=== PATIENT | male | born 1970 | race Caucasian/White ===

== ENCOUNTER 2016-08-28 07:04 | Day surgery (SDC) | payer MEDICARE ==
[~2016-08-28] VITALS: Ht 167.6 cm; Wt 89.0 kg
[2016-08-28] MEDS ORDERED: DEXAMETHASONE 4 MG/ML, 1ML ONE (08:35)
[2016-08-28] MEDS ORDERED: PROPOFOL 10 MG/ML, 20ML ONE (08:35)
[2016-08-28] MEDS ORDERED: CEFAZOLIN 1,000 MG ONE (08:35)
[2016-08-28] MEDS ORDERED: NEOSTIGMINE 1 MG/ML, 10ML ONE (08:35)
[2016-08-28] MEDS ORDERED: ROCURONIUM 10 MG/ML ONE (08:35)
[2016-08-28] MEDS ORDERED: ONDANSETRON 2MG/ML, 2ML ONE (08:35)
[2016-08-28] MEDS ORDERED: GLYCOPYRROLATE 0.2MG/1ML ONE (08:35)
[2016-08-28] MEDS ORDERED: NO HOME MEDS (09:23)
[2016-08-28] MEDS ORDERED: LACTATED RINGERS 1,000 ML IV SCH (09:23)
[2016-08-28 09:24] VITALS: BP 137/93
[2016-08-28] MEDS ORDERED: LIDOCAINE 1%, 2ML SQ PRN (09:30)
[2016-08-28 10:18] LABS: BLOOD UREA NITROGEN 11 mg/dL (7-18)
[2016-08-28 10:22] LABS: ASPARTATE AMINO TRANSFERASE 32 U/L (15-37)
[2016-08-28] MEDS ORDERED: MIDAZOLAM 1 MG/ML, 2ML ONE (13:47)
[2016-08-28] MEDS ORDERED: FENTANYL PF 100 MCG/2ML ONE (13:47)
[2016-08-28] MEDS ORDERED: hydrALAzine 20 MG/ML, 1ML IV PRN (15:00)
[2016-08-28] MEDS ORDERED: ALBUTEROL SULFATE 2.5 MG/3 ML NPPB PRN (15:00)
[2016-08-28] MEDS ORDERED: HYDROmorphone 1 MG/ML, 1ML IV PRN (15:00)
[2016-08-28] MEDS ORDERED: FENTANYL PF 100 MCG/2ML IV PRN (15:00)
[2016-08-28] MEDS ORDERED: ACETAMINOPHEN 325 MG TABLET PO PRN (15:00)
[2016-08-28] MEDS ORDERED: OXYcodone 5 MG/5 ML ORAL.SOL UDC PO PRN (15:00)
[2016-08-28] MEDS ORDERED: METOPROLOL 1 MG/ML, 5ML IV PRN (15:00)
[2016-08-28] MEDS ORDERED: ACETAMINOPHEN 650 MG/20.3 ML UDC ONE (16:09)
[2016-08-28] MEDS ORDERED: OXYcodone 5 MG/5 ML ORAL.SOL UDC ONE (16:09)
== END 2016-08-28 18:00 ==
LOC: OUT 07:04
PROVIDERS: ATTEND Urology
DX: N20.0 Calculus of kidney (principal); I10 Essential (primary) hypertension; Z88.0 Allergy status to penicillin; Z98.890 Other specified postprocedural states
CPT/HCPCS: 36415; 50590; 52005; 80053; 85025; 85610; 85730; 93005; J0690; J1100; J2250; J2405; J2704; J2710; J3010; J7120; J3490

== ENCOUNTER 2016-09-01 18:06 | Emergency (ER) | payer MEDICARE ==
[~2016-09-01] VITALS: Ht 175.3 cm; Wt 88.3 kg
[~2016-09-01 18:06] MED LIST: NO HOME MEDS
[2016-09-01] MEDS ORDERED: HYDR-3240 PO (18:23)
[2016-09-01] MEDS ORDERED: TAMS-11 PO (18:23)
[2016-09-01] MEDS ORDERED: ONDANSETRON 2MG/ML, 2ML ONE (18:53)
[2016-09-01] MEDS ORDERED: HYDROmorphone 1 MG/ML, 1ML ONE ×2 (18:53→21:01)
[2016-09-01] MEDS ORDERED: ONDANSETRON 2MG/ML, 2ML IVPush ONE (19:00)
[2016-09-01] MEDS ORDERED: SODIUM CHLORIDE 0.9% 1,000ML IV ONE (19:00)
[2016-09-01] MEDS ORDERED: SODIUM CHLORIDE FLUSH 10ML SYR IVF ONE (19:00)
[2016-09-01] MEDS ORDERED: HYDROmorphone 1 MG/ML, 1ML IVPush PRN (19:00)
[2016-09-01 19:23] LABS: ASPARTATE AMINO TRANSFERASE 41 U/L (15-37); BLOOD UREA NITROGEN 11 mg/dL (7-18)
[2016-09-01] MEDS ORDERED: KETOROLAC 30 MG/1 ML IVPush ONE (20:30)
[2016-09-02 00:26] VITALS: BP 134/95
[2016-09-02] MEDS ORDERED: ONDANSETRON ODT 8 MG ONE (00:28)
[2016-09-02] MEDS ORDERED: ONDANSETRON ODT 8 MG PO ONE (00:30)
== END 2016-09-02 00:32 | disposition home or self-care (01) ==
LOC: ED 20:23
DX: N13.2 Hydronephrosis with renal and ureteral calculous obstruction (principal); Z88.0 Allergy status to penicillin
CPT/HCPCS: 36415; 74176; 80053; 81001; 83690; 85025; 87086; 96361; 96374; 96375; 99285; J1170; J2405; J7030; Q0162

== ENCOUNTER 2020-03-13 14:09 | Emergency (ER) | payer MEDICARE ==
[~2020-03-13] VITALS: Ht 167.6 cm; Wt 89.4 kg
[~2020-03-13 14:09] MED LIST changes: +HYDR-3240 PO; +TAMS-11 PO
--- NOTE | 2020-03-13 14:47 | NUR ---
TASK RN: PT HERE FOR C/O BLOOD IN STOOL X3 DAYS, DENIES ABD PAIN.
[2020-03-13] MEDS ORDERED: MULT-826 PO (14:50)
[2020-03-13 15:16] LABS: BASOPHILS % (AUTO) 0 % (0-1); EOSINOPHILS % (AUTO) 1 % (1-7); LYMPHOCYTES % (AUTO) 24 % (22-44); MEAN CORPUSCULAR HEMOGLOBIN 31.3 pg (27.5-34.5); MEAN PLATELET VOLUME 7.6 fL (7.4-10.4); MONOCYTES % (AUTO) 7 % (2-9); NEUTROPHILS % (AUTO) 68 % (42-75); PLATELET COUNT 259 x10^3/uL (130-400); RED BLOOD COUNT 5.47 x10^6/uL (4.38-5.82); RED CELL DISTRIBUTION WIDTH 12.4 % (9.4-14.8)
[2020-03-13 15:25] LABS: MD NO
[2020-03-13 15:26] LABS: ALBUMIN 3.9 g/dL (3.4-5.0); ANION GAP 4 mmol/L (5-15); CALCIUM 9.6 mg/dL (8.5-10.1); CHLORIDE 108 mmol/L (98-107); CREATININE 1.37 mg/dL (0.7-1.3)
--- NOTE | 2020-03-13 15:43 | NUR ---
PT RESTING ON [employer]. VSS. NAD. STATES NO NEEDS AT THIS TIME
[2020-03-13 16:11] VITALS: BP 114/86
== END 2020-03-13 16:18 | disposition home or self-care (01) ==
LOC: ED 15:45
DX: K92.1 Melena (principal); R94.31 Abnormal electrocardiogram [ECG] [EKG]
CPT/HCPCS: 36415; 80048; 82040; 85025; 93005; 99284